=== PATIENT | male | born 1950 | race Caucasian/White ===

== ENCOUNTER 2017-02-18 15:50 | Emergency (ER) | payer MEDICARE, OTHER ==
--- NOTE | 2017-02-18 16:46 | RAD ---
HISTORY: History of concussion, increasing headache COMPARISONS: None TECHNIQUE: Multiple contiguous axial CT scans were obtained of the head without intravenous contrast. FINDINGS: HEMORRHAGE/INFARCT: There is no hemorrhage or acute infarct. MASSES/SHIFT: There is no mass or shift. EXTRA-AXIAL SPACES: There are no extra-axial fluid collections. SULCI AND VENTRICLES: The sulci and ventricles are normal in size and position for the patient's stated age. CEREBRUM: There are no focal parenchymal abnormalities. BRAINSTEM: There are no focal parenchymal abnormalities. CEREBELLUM: There are no focal parenchymal abnormalities. VESSELS: The vessels are grossly normal. PARANASAL SINUSES: The paranasal sinuses are clear. ORBITS: The orbits are unremarkable. BONES AND SOFT TISSUE: No bone or soft tissue abnormalities are noted. OTHER: None IMPRESSION: NO ACUTE INTRACRANIAL PATHOLOGY.
--- NOTE | 2017-02-18 17:08 | ED ---
Head Injury - HPI Summary HPI Summary: Patient is in town for the summer from [place]. He suffered a concussion 4 weeks ago and thought he was improving until 4 days ago when his symptoms seem to increase without known cause. He feels more lethargic, and he has a headache that is interfering with his activities. He denies vision changes, neck pain, fever, or neurologic deficits. He has tried over the counter medication without relief. - History Of Current Complaint Chief Complaint: EDHeadInjury Stated Complaint: DX CONCUSSION/WORSENING SYMPTOMS Time Seen by Provider: 02/18/17 16:00 Hx Obtained From: Patient, Family/Filler Sifter Machine Mechanism Of Injury: Unknown Onset/Duration: Started Weeks Ago - 4, Traumatic, Worse Since - 4 days ago Onset of Pain: Post Accident Severity Currently: Moderate Severity Initially: Moderate Pain Intensity: 5 Location of Head Injury: Frontal Character: Dull, Aching Associated Signs And Symptoms: Headache PMH/Surg Hx/FS Hx/Imm Hx Neurological History: Reports: Other Neuro Impairments/Disorders - concussion Infectious Disease History: No Infectious Disease History: Denies: Traveled Outside the in Last 30 Days - Family History Known Family History: Positive: None - Social History Occupation: Retired Lives: With Family Alcohol Use: Rare Substance Use Type: Reports: None Smoking Status (MU): Never Smoked Tobacco Review of Systems Negative: Fever, Chills Negative: Photophobia, Blurred Vision, Diplopia Negative: Ear Ache Negative: Vomiting, Nausea Positive: Headache. Negative: Weakness, Paresthesia, Numbness All Other Systems Reviewed And Are Negative: Yes Physical Exam Triage Information Reviewed: Yes Vital Signs On Initial Exam: Initial Vitals Temp Pulse Resp BP Pulse Ox 97.6 F 79 20 157/92 100 02/18/17 15:53 02/18/17 15:53 02/18/17 15:53 02/18/17 15:53 02/18/17 15:53 Vital Signs Reviewed: Yes Appearance: Positive: Well-Appearing, No Pain Distress, Well-Nourished Skin: Positive: Warm, Skin Color Reflects Adequate Perfusion, Dry, Soft Head/Face: Positive: Normal Head/Face Inspection Eyes: Positive: EOMI, BASIL, Conjunctiva Clear ENT: Positive: Hearing grossly normal Respiratory/Lung Sounds: Positive: Breath Sounds Present Cardiovascular: Positive: RRR Musculoskeletal: Positive: Strength/ROM Intact - moves all limbs freely and easily. Negative: Edema Left, Edema Right Neurological: Positive: Sensory/Motor Intact, Alert, Oriented to Person Place, Time, CN Intact II-III, NV Bundle Intact Distally, Normal Gait, Facial Symmetry , Speech Normal. Negative: Expressive Aphasia Psychiatric: Positive: Affect/Mood Appropriate AVPU Assessment: Alert - Wallace Coma Scale Coma Scale Total: 15 Diagnostics - Vital Signs Vital Signs Temp Pulse Resp BP Pulse Ox 02/18/17 15:55 97.6 F 87 20 157/92 100 02/18/17 15:53 97.6 F 79 20 157/92 100 - Laboratory Lab Statement: Any lab studies that have been ordered have been reviewed, and results considered in the medical decision making process. - CT No standard instances CT Interpretation: No Acute Changes CT Interpretation Completed By: Radiologist Head Injury Course/Dx - Diagnoses Differential Diagnosis/HQI/PQRI: Cerebral Contusion, Concussion Without LOC, Hematoma, Intracranial Bleed Provider Diagnoses: Post-concussion headache Discharge - Discharge Plan Condition: Stable Disposition: HOME Patient Education Materials: Post Concussion Syndrome (ED) Referrals: Non Staff,Doctor [Primary Care Provider] - Additional Instructions: Please speak with your primary care provider in [place] to discuss option for management of your symptoms. Avoid activities that increase your symptoms. Use ibuprofen and Tylenol for headache. Return to the emergency department if symptoms worsen.
[2017-02-18 17:16] VITALS: BP 119/69
== END 2017-02-18 17:35 | disposition home or self-care (01) ==
LOC: ED 15:50
DX: F07.81 Postconcussional syndrome (principal); G44.309 Post-traumatic headache, unspecified, not intractable
CPT/HCPCS: 70450; 99282

== ENCOUNTER 2019-05-29 12:16 | Emergency (ER) | payer MEDICARE ==
[2019-05-29 12:30] VITALS: BP 117/75
--- NOTE | 2019-05-29 13:25 | UC ---
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 Denies ear pain. + sore throat, swallowing/ drinking well. Patients are from [place] and concerned about cost- declined x-ray due to potential cost. - History of Current Complaint Chief Complaint: UCGeneralIllness Stated Complaint: COUGH CHEST CONGESTION Time Seen by Provider: 05/29/19 13:19 Hx Obtained From: Patient, Family/Rehabilitation Services Director - Onset/Duration: Sudden Onset, Lasting Days - 11 days, improved since onset Timing: Constant Severity Currently: Mild Pain Intensity: 3 Pain Scale Used: 0-10 Numeric Character: Cough: Nonproductive, Cough: Productive - intermittently Associated Signs And Symptoms: Positive: Fever - resolved - Allergies/Home Medications Allergies/Adverse Reactions: Allergies Allergy/AdvReac Type Severity Reaction Status Date / Time No Known Allergies Allergy Verified 05/29/19 12:30 PMH/Surg Hx/FS Hx/Imm Hx Previously Healthy: Yes - no meds, no Tob use - Surgical History Surgical History: None - Family History Known Family History: Positive: None, Non-Contributory - Social History Alcohol Use: Rare Substance Use Type: None Smoking Status (MU): Never Smoked Tobacco Review of Systems All Other Systems Reviewed And Are Negative: Yes Constitutional: Positive: Fever - resolved, Chills, Fatigue ENT: Positive: Sore Throat, Nasal Discharge, Sinus Congestion, Sinus Pain/ Tenderness Respiratory: Positive: Cough. Negative: Shortness Of Breath Cardiovascular: Negative: Palpitations, Chest Pain Is Patient Immunocompromised?: No Physical Exam Triage Information Reviewed: Yes Appearance: Well-Appearing, No Pain Distress, Well-Nourished Vital Signs: Initial Vital Signs Temp 97.0 F 05/29/19 12:26 Pulse 65 05/29/19 12:26 Resp 18 05/29/19 12:26 BP 117/75 05/29/19 12:26 Pulse Ox 98 05/29/19 12:26 Eyes: Positive: Conjunctiva Clear ENT: Positive: Pharyngeal erythema - minimal b/l, no tonsillar swelling no exudates, TMs normal - b/l fulid behind TM., Sinus tenderness - b/l frontal, Uvula midline. Negative: TM bulging, TM dull, TM red, Tonsillar swelling, Tonsillar exudate Neck: Positive: Supple, No Lymphadenopathy, Tenderness @ - b/l submand, no LAD. Negative: Nuchal Rigidity Respiratory: Positive: Chest non-tender, Lungs clear, Normal breath sounds, No respiratory distress, No accessory muscle use. Negative: Crackles, Rhonchi, Stridor, Wheezing Cardiovascular: Positive: RRR, No Murmur Psychological Exam: Normal Respiratory Course/Dx - Course Course Of Treatment: Discussed treatment options with patient. Likely acute bronchitis, but due to S/s and length, recommended X-ray, patient refused due to cost. Suggested steroid to help with cough, pt declined. Sinusitis: - Follow up with your primary physician within 2-3 days for repeat evaluation - Antibiotics as directed - Increase fluid intake, humidifier to keep mucous membranes moist. - Tylenol/ Motrin as needed for pain, fever, muscle aches - Return or go to ER with increased pain, fever > 102, neck stiffness/ pains. - Differential Dx/Diagnosis Provider Diagnosis: Sinusitis, Bronchitis Discharge ED - Sign-Out/Discharge Documenting (check all that apply): Patient Departure All imaging exams completed and their final reports reviewed: No Studies - Discharge Plan Condition: Fair Disposition: HOME Prescriptions: Albuterol HFA INHALER* [Ventolin HFA Inhaler*] 1 - 2 puff INH Q4H PRN #1 mdi PRN Reason: shortness of breath Azithromyxin JOSEE (NF) [Z-Josee (Zithromax) 250 mg tabs #6] 2 tab PO .TODAY, THEN 1 DAILY #6 tab Patient Education Materials: Sinusitis (ED) Referrals: No Primary Care Phys,NOPCP [Primary Care Provider] - Additional Instructions: Sinusitis: - Follow up with your primary physician within 2-3 days for repeat evaluation - Antibiotics as directed - Increase fluid intake, humidifier to keep mucous membranes moist. - Tylenol/ Motrin as needed for pain, fever, muscle aches - Return or go to ER with increased pain, fever > 102, neck stiffness/ pains. - Billing Disposition and Condition Condition: FAIR Disposition: Home
== END 2019-05-29 13:54 | disposition home or self-care (01) ==
LOC: UCEAST 12:16
DX: J32.9 Chronic sinusitis, unspecified (principal); J40 Bronchitis, not specified as acute or chronic
CPT/HCPCS: 99212; G0463